=== PATIENT | male | born 1990 | race Caucasian/White ===

== ENCOUNTER 2016-07-20 23:34 | Emergency (ER) | payer SELFPAY ==
[2016-07-21] MEDS ORDERED: BACTDS PO (13:17)
[2016-07-21] MEDS ORDERED: IBUP-1542 PO (13:17)
[2016-07-21] MEDS ORDERED: CEPH-443 PO (13:17)
== END 2016-07-21 | disposition left against medical advice (07) ==
LOC: E/R 23:34
DX: Z53.21 Procedure and treatment not carried out due to patient leaving prior to being seen by health care provider (principal)

== ENCOUNTER 2016-07-21 10:59 | Emergency (ER) | payer SELFPAY ==
[~2016-07-21] VITALS: Wt 85.0 kg
[2016-07-21] MEDS ORDERED: LIDOCAINE 1% (MDV) 20 ML INJ IM ONE (13:00)
[2016-07-21] MEDS ORDERED: CEFTRIAXONE 1 GM INJ IM ONE (13:00)
[2016-07-21] MEDS ORDERED: HYDROCODONE/APAP (5/325) TAB PO ONE (13:00)
[2016-07-21] MEDS ORDERED: CEPH-443 PO (13:17)
[2016-07-21] MEDS ORDERED: BACTDS PO (13:17)
[2016-07-21] MEDS ORDERED: IBUP-1542 PO (13:17)
--- NOTE | 2016-07-21 13:31 | ERD ---
ER Documentation Chief Complaint Date/Time DATE: 07/21/16 TIME: 13:27 Chief Complaint POSSIBLE SPIDER BITE TO RIGHT ARM FIRST NOTICED MONDAY HPI 26-year-old male presents with a right forearm abscess that started about 4 days ago. Patient states that it started as a small pimple, it got bigger and yesterday he tries to get needle into it to drain. He states that he only got a little bit of clear fluid, no pus. He denies any fevers, chills or trauma. Patient denies IV drug abuse. 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 ROS All systems reviewed and are negative except as per history of present illness. Medications Home Meds Active Scripts Ibuprofen* (Motrin*) 600 Mg Tab, 600 MG PO Q6, #30 TAB Prov:SERA KO PA-C 07/21/16 Sulfamethoxazole-Trimethoprim* (Bactrim* DS) 800-160 Mg Tab, 1 TAB PO BID for 7 Days, TAB Prov:SERA KO PA-C 07/21/16 Cephalexin* (Keflex*) 500 Mg Capsule, 500 MG PO QID for 7 Days, CAP Prov:SERA KO PA-C 07/21/16 Allergies Allergies: Coded Allergies: No Known Allergy (Unverified , 07/21/16) PMhx/Soc Medical and Surgical Hx: pt denies Medical Hx, pt denies Surgical Hx Hx Alcohol Use: No Hx Substance Use: No Hx Tobacco Use: No Smoking Status: Never smoker Physical Exam Vitals Vital Signs Date Time Temp Pulse Resp B/P Pulse Ox O2 Delivery O2 Flow Rate FiO2 07/21/16 11:11 98.0 93 18 152/72 99 Physical Exam General: Well-developed, well-nourished. The patient appears in no acute distress. HEENT: Head is normocephalic, atraumatic. No scleral icterus. Neck: Supple. Nontender. Lungs: Clear to auscultation. Normal air movement. Heart: Regular rate and rhythm. S1 and S2 are normal. No murmurs, gallops, or rubs. Abdomen: Nondistended. Extremities: 4 cm induration on the right proximal forearm on the lateral aspect , there is surrounding cellulitis. The central aspect has about a 1 cm scab- like wound from previous incision. Neurologic: Alert and oriented 3. No focal deficits. Normal speech and gait. Skin: Normal turgor. No rash or lesions. Results 24 hrs Current Medications Medications (Trade) Dose Ordered Sig/López Route PRN Reason Start Time Stop Time Status Last Admin Dose Admin Lidocaine (Xylocaine 1% (Mdv) 20 ml) 2 ml ONCE ONCE IM 07/21/16 13:00 07/21/16 13:01 DC Acetaminophen/ Hydrocodone Bitart (Cresbard (5/325)) 1 tab ONCE ONCE PO 07/21/16 13:00 07/21/16 13:01 DC 07/21/16 12:44 Ceftriaxone Sodium (Rocephin) 1 gm ONCE ONCE IM 07/21/16 13:00 07/21/16 13:01 DC 07/21/16 12:48 Procedures/MDM Abscess Incision and Drainage with irrigation: Patient was verbally consented Location: Right forearm Anesthesia: Local 1% Lidocaine Technique: Irrigated. Disrupted loculations w/ instrumentation Packing: Quarter inch packing Complications: Neurovascularly intact post procedure 48 hour wound check. Scar minimization instructions given. Patient's skin symptoms have stabilized while they have been evaluated in the department and are appropriate for outpatient care and work up. Exam and w/u not consistent w/ sepsis, deep space infection, or foreign body. He was also given Rocephin 1 g IM. Patient's tetanus is up-to-date, was 2-3 years ago, no Tdap required at this time. He was given Cresbard for pain. MDM: 26-year-old male presents with an abscess, there is surrounding cellulitis and incision and drainage was performed. No no complications noted, no deep space infection. There is no evidence of limb threatening process, suspicion for DVT is low, the surrounding cellulitis is likely the reason for the swelling to the forearm. Departure Diagnosis: Primary Impression: Encounter for incision and drainage procedure Additional Impression: Abscess Condition: Good Patient Instructions: Abscess, Incision And Drainage Additional Instructions: Wound check in 2 days. Return sooner if any worsening any symptoms. SERA KO PA-C Jul 21, 2016 13:31
== END 2016-07-21 13:28 | disposition home or self-care (01) ==
LOC: FTE 10:59
DX: L02.413 Cutaneous abscess of right upper limb (principal)
CPT/HCPCS: 10061; 96372; 99284; J0696

== ENCOUNTER 2016-07-22 22:27 | Emergency (ER) | payer SELFPAY ==
[~2016-07-22] VITALS: Ht 167.6 cm; Wt 75.5 kg
[~2016-07-22 22:27] MED LIST: BACTDS PO; CEPH-443 PO; IBUP-1542 PO
[2016-07-22 23:19] VITALS: Ht 167.6 cm; Wt 75.5 kg
--- NOTE | 2016-07-23 00:58 | ERD ---
ER Documentation Chief Complaint Date/Time DATE: 07/23/16 TIME: 00:56 Chief Complaint Abscess drained but hand are swollen, got worst per pt HPI Patient is a 28-year-old male who is here for a 24 hour wound check for an abscess on his right upper extremity. He has been taking Bactrim and Keflex just today. He states he has not noticed any improvement. There is still swelling and warmth. He states the packing fell out. Denies fever. Pain is mild throbbing. ROS All systems reviewed and are negative except as per history of present illness. Medications Home Meds Active Scripts Ibuprofen* (Motrin*) 600 Mg Tab, 600 MG PO Q6, #30 TAB Prov:SERA KO PA-C 07/21/16 Sulfamethoxazole-Trimethoprim* (Bactrim* DS) 800-160 Mg Tab, 1 TAB PO BID for 7 Days, TAB Prov:SERA KO PA-C 07/21/16 Cephalexin* (Keflex*) 500 Mg Capsule, 500 MG PO QID for 7 Days, CAP Prov:SERA KO PA-C 07/21/16 Allergies Allergies: Coded Allergies: No Known Allergy (Unverified , 07/21/16) PMhx/Soc Hx Alcohol Use: No Hx Substance Use: No Hx Tobacco Use: No FmHx Family History: No diabetes Physical Exam Vitals Vital Signs Date Time Temp Pulse Resp B/P Pulse Ox O2 Delivery O2 Flow Rate FiO2 07/22/16 23:19 98.3 91 18 121/70 99 Physical Exam General: well developed, well nourished, alert, nontoxic, no distress Head: normocephalic, atraumatic Neck: Supple, nontender, no lymphadenopathy, no midline tenderness Respiratory: Clear to auscaultation bilaterally, speaks in full sentences, no use of accesory muscles or labored breathing, no rales, ronchi, or wheezing Cardiovascular: RRR, No murmurs Skin: Healing abscess on the right upper extremity with scant purulent drainage , approximately 2-3 inches of surrounding erythema with warmth, full range of motion in the elbow and all hands and fingers, sensation to light touch intact Procedures/MDM Patient is here for a wound check on abscess. He is only been taking antibiotics for 1 days I recommend he continue to take antibiotics and continue to monitor the wound and return if he continues to get worse including increased pain, swelling, redness, warmth, fever or any other concern. Wound was appropriately dressed here in the emergency room. Recommended this patient follow up with her primary care doctor within 48 hours or return to the emergency room for any worsening of symptoms. However this time I do believe there is suitable for outpatient management. I answered all their questions and they agreed with the plan and were discharged home. Departure Diagnosis: Primary Impression: Encounter for wound re-check Condition: Stable Patient Instructions: Wound Care Additional Instructions: Call your primary care doctor TOMORROW for an appointment during the next 1-2 days.See the doctor sooner or return here if your condition worsens before your appointment time. PRISCILLA SY PA-C Jul 23, 2016 00:58
== END 2016-07-23 01:27 | disposition home or self-care (01) ==
LOC: FTE 22:27
DX: Z48.01 Encounter for change or removal of surgical wound dressing (principal)
CPT/HCPCS: 99281